=== PATIENT | male | born 1955 | race Caucasian/White ===

== ENCOUNTER 2023-01-30 12:37 | Emergency (ER) | payer MEDICARE, SELFPAY ==
[2023-01-30] VITALS (62 sets, daily range): BP systolic 108–141; BP diastolic 53–74; PULSE 46–72; RESP 12–24; TEMP 36.9; O2SAT 92–99
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
[2023-01-30] MEDS: fentaNYL 100 MCG/2 ML VIAL 50 MCG IVP ×3 (13:25→18:59)
[2023-01-30] MEDS: ACETAMINOPHEN 1,000 MG/100 ML BTL 400 MG IVPB ×2 (13:26→22:48)
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
[2023-01-30 13:41] LABS: Abs Immature Grans 0.06 10^3/uL (0.0-0.06); Absolute Basophil Count 0.02 10^3/uL (0.0-0.2); Absolute Lymphocyte Count 0.65 10^3/uL (1.2-3.4); Absolute Monocyte Count 0.45 10^3/uL (0.1-0.8); Absolute Neutrophil Count 7.79 10^3/uL (1.2-6.7); Basophils % 0.2; HCT 37.9 % (40.0-50.0); HGB 12.8 g/dL (13.5-17.5); Immature Grans % 0.7; Lymphocytes % 7.2; MCH 33.1 pg (27.0-33.0); MCHC 33.8 % (32.0-36.0); MCV 98 fL (80-95); MPV 8.4 fL (8.0-11.0); Neutrophils % 86.9; Platelet Count 191 10^3/uL (130-400); RBC 3.87 10^6/uL (4.36-5.78); RDW 14.1 % (11.8-14.1); RDW-SD 51.5 fL; WBC 8.97 10^3/uL (4.4-10.8)
[2023-01-30 13:58] LABS: ALT 29 U/L (16-63); AST 27 U/L (15-37); Albumin 3.6 g/dL (3.4-5.0); Alkaline Phosphatase 57 U/L (46-116); Anion Gap 7.8 mmol/L (3-11); BUN 19 mg/dL (7-18); Bilirubin, Total 0.4 mg/dL (0.2-1.0); CO2 27.2 mmol/L (21.0-32.0); CREATININE 0.9 mg/dL (0.70-1.30); Calcium 8.9 mg/dL (8.5-10.1); Chloride 103 mmol/L (98-107); Estimated GFR 94.19 (mL/min/1.73m2); Glucose 141 mg/dL (74-106); Sodium 138 mmol/L (136-145); Total Protein 6.5 g/dL (6.4-8.2)
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
[2023-01-30 15:21] LABS: INR 1.1 (0.9-1.1); PTT Activated 19.6 sec (21.5-31.9); Prothrombin Time 10.8 sec (9.3-11.0)
[2023-01-30] MEDS: Normal Saline - Diluent 50 ML VIAL IJ (15:34)
[2023-01-30] MEDS: Normal Saline Flush 10 ML SYR IVP (15:35)
[2023-01-30] MEDS: Omnipaque 350 MG/ML 100 ML BTL IJ (15:35)
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
[2023-01-30] MEDS: LORazepam 2 MG/ML VIAL 0.5 MG IVP (19:40)
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
[2023-01-30] MEDS: Lidocaine 1% Multi-Dose 50 ML VIAL (20:02)
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
[2023-01-30] MEDS: Ondansetron 4 MG/2 ML VIAL IVP ×2 (20:54→22:58)
[2023-01-30] MEDS: fentaNYL 100 MCG/2 ML VIAL 25 MCG IVP (20:54)
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
--- NOTE | 2023-01-30 22:38 | W.EDPROG ---
Date of service: 12/30/22 Time of Service: 00:00 Medical Decision Making 2230 asked to see the patient as he has blood out of his chest tube and is more uncomfortable. The patient has been getting fentanyl and his last dose was several hours ago. He has 30 mL out of his chest tube. He has got equal breath sounds and is able to converse easily with me. He did get IV Tylenol around 2:30 or so this afternoon. We will give additional analgesia. 0400 Patient has been sleeping soundly, looking comfortably, with normal vital signs. He is awake now and states that his pain is coming back. We will give him another milligram of Dilaudid. He has about 35 mL total of blood out of his chest tube. Medical Records Medical records reviewed: Yes I reviewed the patient's medical records. Lab Data Lab results reviewed: Yes I reviewed the patient's lab results. Discharge Plan Disposition Patient Disposition: Transfer-Acute Inpatient Care Specific Acute In Facility: [facility] Condition: Stable Discharge Details Clinical Impression: Pneumothorax, Fracture, ribs, Closed fracture of pubic ramus ED Provider: Dorota Suarez Home Meds and New Rx's Prescriptions: No Action fluticasone propion-salmeterol [Advair Diskus] 250-50 mcg/dose Blister With Device 1 inh INHALATION DAILY Discharge Data Discharge Date/Time-TO BE ENTERED AT DEPARTURE: 01/31/23 07:15
[2023-01-30] MEDS: HYDROmorphone 2 MG/ML SYR 1 MG IVP (22:49)
--- NOTE | 2023-01-30 23:07 | NUR.NOTE ---
Nursing Note: Patients Paris is leaving the bedside. She would like an update when patient is going to be transported. Her cell phone number is [phone]
[2023-01-31] VITALS (68 sets, daily range): BP systolic 103–118; BP diastolic 51–80; PULSE 47–78; RESP 9–22; TEMP 36.8; O2SAT 90–100
[2023-01-31] MEDS: HYDROmorphone 2 MG/ML SYR 1 MG IVP ×2 (03:57→06:29)
--- NOTE | 2023-01-31 07:32 | NUR.NOTE ---
Nursing Note: [facility], pt's notified of departure. Pt handed off to [facility].
== END 2023-01-31 07:15 | disposition short-term general hospital (02) ==
PROVIDERS: Emergency Medicine; Emergency Provider Emergency Medicine
DX: J93.9 Pneumothorax, unspecified (principal); S22.41XA Multiple fractures of ribs, right side, initial encounter for closed fracture; S32.501A Unspecified fracture of right pubis, initial encounter for closed fracture; Y93.55 Activity, bike riding; V18.0XXA Pedal cycle driver injured in noncollision transport accident in nontraffic accident, initial encounter
CPT/HCPCS: 32556; 73552; 74177; 80053; 90471; 96374; 96375; 96376; 99291; 70450; 71045; 71260; 72125; 73080; 73130; 85025; 85610; 85730; J0131; J1170; J2060; J2405; J3010; J3490